=== PATIENT | female | born 1970 | race Caucasian/White ===

== ENCOUNTER 2016-10-21 11:07 | Emergency (ER) | payer MEDICARE, MEDICAID ==
[2016-10-21 11:12] VITALS: BMI 23.1
[2016-10-21] MEDS ORDERED: Sodium Chloride 0.9% 1,000 ML IV STA (11:58)
[2016-10-21] MEDS ORDERED: DiphenhydrAMINE 50 mg/ml Inj IVP STA (11:59)
[2016-10-21 12:11] LABS: URINE APPEARANCE CLEAR (CLEAR); URINE BILIRUBIN NEGATIVE (NEGATIVE); URINE BLOOD NEGATIVE (NEGATIVE); URINE COLOR YELLOW (YELLOW); URINE GLUCOSE (UA) NEGATIVE (NEGATIVE); URINE KETONE NEGATIVE (NEGATIVE); URINE LEUKOCYTE ESTERASE NEGATIVE Leu/uL (NEGATIVE); URINE PROTEIN NEGATIVE mg/dL (<30 mg/dL); URINE UROBILINOGEN 0.2 E.U./dL (<1 E.U./dL)
--- NOTE | 2016-10-21 12:11 | ED PDOC ---
Arrival/HPI - History of Present Illness Time/Duration: 24 hours Symptom Onset: Other Symptom Course: Unchanged Context: Home <Leatha Srivastava - Last Filed: 10/21/16 13:06> <Cassius Barrios - Last Filed: 10/21/16 19:52> - General Chief Complaint: Back Pain Time Seen by Provider: 10/21/16 11:13 - History of Present Illness Narrative History of Present Illness (Text): 10/21/16 11:59 46 yo female with PMH of kidney stone, sciatic, deafness, and HLD presented with lower back pain and headache. Groundskeeper Supervisor service used, number [id number]. Patient states that the back pain has been chronic for past year but was improving until yesterday. She states that the pain radiates down her right leg. She took Advil and meloxicam which helped with the pain. She also reports headache that stated this morning. She describes the headache as a tightness, she states she had similar headache in the past due to stress. She is currently visiting from [place] for this past month. Her PMD is in [place]. (Leatha Srivastava) Past Medical History - Provider Review Nursing Documentation Reviewed: Yes - Past History Past History: Non-Contributing - Infectious Disease Hx of Infectious Diseases: None - Cardiac Hx Cardiac Disorders: Yes - Pulmonary Hx Respiratory Disorders: No - Neurological Hx Neurological Disorder: No - HEENT Hx HEENT Disorder: Yes Hx Deafness: Yes Other/Comment: francis her son interpeter for sign okay with patinet. phone offered - Renal Hx Renal Disorder: No - Endocrine/Metabolic Hx Endocrine Disorders: No - Hematological/Oncological Hx Blood Transfusions: No Hx Blood Transfusion Reaction: No - Integumentary Hx Dermatological Disorder: No - Musculoskeletal/Rheumatological Hx Musculoskeletal Disorders: No - Gastrointestinal Hx Gastrointestinal Disorders: No - Genitourinary/Gynecological Other/Comment: h/o kidney stones - Psychiatric Hx Psychophysiologic Disorder: No Hx Depression: No Hx Emotional Abuse: No Hx Physical Abuse: No Hx Substance Use: No - Surgical History Hx Hysterectomy: Yes - Anesthesia Hx Anesthesia: Yes Hx Anesthesia Reactions: No Hx Malignant Hyperthermia: No - Suicidal Assessment Feels Threatened In Home Enviroment: No <Leatha Srivastava - Last Filed: 10/21/16 13:06> Family/Social History - Physician Review Nursing Documentation Reviewed: Yes Family/Social History: Hypertension, Neoplasm/Cancer Smoking Status: Never Smoked Hx Alcohol Use: No Hx Substance Use: No Hx Substance Use Treatment: No <Leatha Srivastava - Last Filed: 10/21/16 13:06> Allergies/Home Meds <Leatha Srivastava - Last Filed: 10/21/16 13:06> <Cassius Barrios - Last Filed: 10/21/16 19:52> Allergies/Adverse Reactions: Allergies No Known Allergies Allergy (Verified 04/20/15 22:46) Home Medications: Home Meds Medication Instructions Recorded Confirmed Lovastatin [Lovastatin] 40 mg PO DAILY 07/16/13 10/21/16 Biotin [Layo Biotin] 1 tab PO DAILY 10/21/16 10/21/16 Cyclobenzaprine [Flexeril] 1 tab PO TID PRN 10/21/16 10/21/16 Meloxicam [Mobic] 1 tab PO DAILY PRN 10/21/16 10/21/16 Review of Systems - Review of Systems Constitutional: Normal. absent: Fevers Eyes: Normal ENT: Normal. absent: Sore Throat, Sinus Congestion Respiratory: Normal. absent: SOB, Cough, Wheezing Cardiovascular: Normal. absent: Chest Pain, Palpitations Gastrointestinal: Nausea. absent: Abdominal Pain, Constipation, Diarrhea, Vomiting Genitourinary Female: Normal. absent: Dysuria, Frequency Musculoskeletal: Back Pain Skin: Normal. absent: Rash, Pruritis, Laceration Neurological: Headache. absent: Dizziness Endocrine: Normal. absent: Diaphoresis Hemo/Lymphatic: Normal. absent: Easy Bleeding, Easy Bruising Psychiatric: Normal <Leatha Srivastava - Last Filed: 10/21/16 13:06> Physical Exam - Systems Exam Head: Present: Atraumatic, Normocephalic Pupils: Present: PERRL. No: Non-Reactive, Pinpoint Extroacular Muscles: Present: EOMI. No: Entrapment Conjunctiva: Present: Normal Mouth: Present: Moist Mucous Membranes Pharnyx: Present: Normal. No: ERYTHEMA, EXUDATE Neck: Present: Normal Range of Motion Respiratory/Chest: Present: Clear to Auscultation, Good Air Exchange. No: Respiratory Distress, Accessory Muscle Use, Wheezes, Rales, Rhonchi, Tachypneic Cardiovascular: Present: Regular Rate and Rhythm, Normal S1, S2. No: Murmurs, Tachycardic, Bradycardic Abdomen: Present: Normal Bowel Sounds. No: Tenderness, Distention, Peritoneal Signs Back: Present: Normal Inspection. No: CVA Tenderness, Midline Tenderness, Paraspinal Tenderness, Pain with Leg Raise Upper Extremity: Present: Normal Inspection. No: Cyanosis, Edema Lower Extremity: Present: Normal Inspection, NORMAL PULSES. No: Edema, CALF TENDERNESS Neurological: Present: GCS=15, CN II-XII Intact, Speech Normal, Motor Func Grossly Intact Skin: Present: Warm, Dry, Normal Color. No: Rashes, Diaphoretic Psychiatric: Present: Alert, Oriented x 3, Normal Insight, Normal Concentration <Leatha Srivastava - Last Filed: 10/21/16 13:06> Medical Decision Making <Leatha Srivastava - Last Filed: 10/21/16 13:06> <Cassius Barrios - Last Filed: 10/21/16 19:52> ED Course and Treatment: 10/21/16 12:17 Impression: 46 yo female with PMH of kidney stone, sciatic, deafness, and HLD presented with lower back pain and headache. Differential diagnoses includes but not limited to: - Kidney stones Plan: - CBC, CMP - UA - lipase - reglan - Benadryl progress: 10/21/16 13:04 - Labs reviewed, within normal limits. Patient is to follow up with neurologist. She is instructed to return to ED if symptoms worsen. (Leatha Srivastava) Patient Seen With Resident: In agreement with resident note which contains more details about the patient. Patient was seen and evaluated with resident. Came up with plan and treatment together. A 46 year old female with lower back pain and headache. Additional HPI as noted by resident. On physical exam, patient has no acute findings. Ordered labs and Urinalysis. Will give patient Benadryl, Reglan and IV fluids. pt with low back pain radiating down right leg consistent with known sciatica, x 1 yr. also reports headache which started today. neuro itnact. no thunderclap features. reglan benadryl dosed. noted multiple visits for headache in past. s/p meds, pt smiling states feels well to go home. neuro intact. adviseoutpt follow up and return precautions 10/21/16 12:43 (Cassius Barrios) - Lab Interpretations Lab Results: 10/21/16 12:13 10/21/16 12:13 Lab Results 10/21/16 12:13: Sodium 142, Potassium 4.2, Chloride 107, Carbon Dioxide 25, Anion Gap 14, BUN 9, Creatinine 0.6, Est GFR ( Amer) > 60, Est GFR (Non- Af Amer) > 60, Random Glucose 89, Calcium 9.5, Total Bilirubin 0.9, AST 20, ALT 29, Alkaline Phosphatase 74, Total Protein 7.2, Albumin 4.0, Globulin 3.2, Albumin/Globulin Ratio 1.3, Lipase 147 10/21/16 12:13: PT 10.5, INR 0.97, APTT 26.2 10/21/16 12:13: WBC 5.9, RBC 4.42, Hgb 13.8, Hct 42.0, MCV 95.0, MCH 31.2, MCHC 32.9, RDW 12.5, Plt Count 235, MPV 11.2 H, Gran % 75.2 H, Lymph % (Auto) 16.8 L , [place] % (Auto) 7.4 H, Eos % (Auto) 0.3 L, Baso % (Auto) 0.3, Gran # 4.40, Lymph # 1.0 L, [place] # 0.4, Eos # 0.0, Baso # 0.02 10/21/16 12:05: Urine Color Yellow, Urine Appearance Clear, Urine pH 7.0, Ur Specific [place] 1.010, Urine Protein Negative, Urine Glucose (UA) Negative, Urine Ketones Negative, Urine Blood Negative, Urine Nitrate Negative, Urine Bilirubin Negative, Urine Urobilinogen 0.2, Ur Leukocyte Esterase Negative, Urine HCG, Qual Negative - Medication Orders Current Medication Orders: Discontinued Medications Diphenhydramine HCl (Benadryl) 25 mg IVP STAT STA Stop: 10/21/16 12:00 Last Admin: 10/21/16 12:14 Dose: 25 mg Sodium Chloride (Sodium Chloride 0.9%) 1,000 mls @ 1,000 mls/hr IV .Q1H STA Stop: 10/21/16 12:57 Last Admin: 10/21/16 12:11 Dose: 1,000 mls/hr Metoclopramide HCl (Reglan) 10 mg IVP STAT STA Stop: 10/21/16 11:59 Last Admin: 10/21/16 12:15 Dose: 10 mg <Leatha Srivastava - Last Filed: 10/21/16 13:06> - Scribe Statement The provider has reviewed the documentation as recorded by the Scribe <Cassius Barrios - Last Filed: 10/21/16 19:52> - Scribe Statement Po Munoz Provider Scribe Attestation: All medical record entries made by the Scribe were at my direction and personally dictated by me. I have reviewed the chart and agree that the record accurately reflects my personal performance of the history, physical exam, medical decision making, and the department course for this patient. I have also personally directed, reviewed, and agree with the discharge instructions and disposition. (Cassius Barrios) Disposition/Present on Arrival - Present on Arrival Any Indicators Present on Arrival: No History of DVT/PE: No History of Uncontrolled Diabetes: No Urinary Catheter: No History of Decub. Ulcer: No History Surgical Site Infection Following: None - Disposition Have Diagnosis and Disposition been Completed?: Yes Patient Plan: Discharge <Leatha Srivastava - Last Filed: 10/21/16 13:06> - Present on Arrival Any Indicators Present on Arrival: No - Disposition Have Diagnosis and Disposition been Completed?: Yes Disposition Time: 12:44 <Cassius Barrios - Last Filed: 10/21/16 19:52> - Disposition Diagnosis: Headache, Back pain Disposition: HOME/ ROUTINE Condition: GOOD Discharge Instructions (ExitCare): Acute Headache (ED), Acute Low Back Pain (ED ) Additional Instructions: please see specialist. return toe r with worsening symptoms or concerns. Prescriptions: Acetaminophen/Butalbital/Caf [Fioricet] 1 tab PO Q8 PRN #20 tab PRN Reason: Headache Referrals: Bucky Mujica, [Primary Care Provider] - Follow up with primary Gary Jones MD [Staff Provider] - Follow up with primary Demario Jones MD [Staff Provider] - Follow up with primary
[2016-10-21 12:14] LABS: ADD MANUAL DIFF? NO
[2016-10-21 12:23] LABS: BASO # 0.02 K/mm3 (0.0-2.0); BASO % 0.3 % (0.0-3.0); EOS % 0.3 % (1.5-5.0); GRAN % 75.2 % (50.0-68.0); LYMPH % 16.8 % (22.0-35.0); MEAN CORPUSCULAR HEMOGLOBIN 31.2 pg (25.0-35.0); MEAN CORPUSCULAR HGB CONC 32.9 g/dl (31.0-37.0); MEAN PLATELET VOLUME 11.2 fl (7.0-11.0); MONO # 0.4 (0.1-0.6); MONO % 7.4 % (1.0-6.0); PLATELET COUNT 235 10^3/uL (120.0-450.0); RED CELL DISTRIBUTION WIDTH 12.5 % (11.5-14.5); WHITE BLOOD COUNT 5.9 10^3/ul (4.5-11.0)
[2016-10-21 12:29] LABS: INR 0.97 (0.93-1.08); PARTIAL THROMBOPLASTIN TIME 26.2 Seconds (23.7-30.8)
[2016-10-21 12:37] LABS: ALB/GLOB RATIO 1.3 (1.1-1.8); ALKALINE PHOSPHATASE 74 U/L (38-133); ALT/SGPT 29 U/L (7-56); AST/SGOT 20 U/L (15-39); BILIRUBIN,TOTAL 0.9 mg/dL (0.2-1.3); BLOOD UREA NITROGEN 9 mg/dL (7-21); CALCIUM 9.5 mg/dL (8.4-10.5); CARBON DIOXIDE 25 mmol/L (21-33); CHLORIDE 107 mmol/L (98-107); GFR AFRICAN-AMERICAN > 60; GLUCOSE,RANDOM 89 mg/dL (70-110); LIPASE 147 U/L (23-300); POTASSIUM 4.2 mmol/L (3.6-5.0); SODIUM 142 mmol/L (132-148); TOTAL PROTEIN 7.2 g/dL (5.8-8.3)
[2016-10-21 12:53] VITALS: BP 128/68; PULSE 76; RESP 16; TEMP 97.6; O2SAT 96
== END 2016-10-21 12:57 | disposition home or self-care (01) ==
LOC: ED 11:07
DX: R51 Headache (principal); M54.5 Low back pain; E78.5 Hyperlipidemia, unspecified; H91.90 Unspecified hearing loss, unspecified ear
CPT/HCPCS: 80053; 81003; 83690; 84703; 85025; 85610; 85730; 96361; 96374; 96375; 99283; J1200; J2765; J7040

== ENCOUNTER 2017-02-03 12:01 | Emergency (ER) | payer MEDICARE, MEDICAID ==
--- NOTE | 2017-02-03 12:07 | ED PDOC ---
Arrival/HPI - General Time Seen by Provider: 02/03/17 12:06 Historian: Patient - History of Present Illness Narrative History of Present Illness (Text): 02/03/17 12:06 46 y/o female, pmh including hyperlipidemia/cholecystitis, nkda, c/o burning urinary sensation x 2 days. Pt. has no fever or chills, no abdominal or pelvic pain, no numbness or tingling, no night sweat, no rash, no other medical or psychological complaints. Past Medical History - Provider Review Nursing Documentation Reviewed: Yes - Past History Past History: Non-Contributing - Infectious Disease Hx of Infectious Diseases: None - Cardiac Hx Cardiac Disorders: Yes - Pulmonary Hx Respiratory Disorders: No - Neurological Hx Neurological Disorder: No - HEENT Hx HEENT Disorder: Yes Hx Deafness: Yes Other/Comment: francis her son interpeter for sign okay with patinet. phone offered - Renal Hx Renal Disorder: No - Endocrine/Metabolic Hx Endocrine Disorders: No - Hematological/Oncological Hx Blood Transfusions: No Hx Blood Transfusion Reaction: No - Integumentary Hx Dermatological Disorder: No - Musculoskeletal/Rheumatological Hx Musculoskeletal Disorders: No - Gastrointestinal Hx Gastrointestinal Disorders: No - Genitourinary/Gynecological Other/Comment: h/o kidney stones - Psychiatric Hx Psychophysiologic Disorder: No Hx Depression: No Hx Emotional Abuse: No Hx Physical Abuse: No Hx Substance Use: No - Surgical History Hx Hysterectomy: Yes - Anesthesia Hx Anesthesia: Yes Hx Anesthesia Reactions: No Hx Malignant Hyperthermia: No - Suicidal Assessment Feels Threatened In Home Enviroment: No Family/Social History - Physician Review Nursing Documentation Reviewed: Yes Family/Social History: Unknown Family HX Smoking Status: Never Smoked Hx Alcohol Use: No Hx Substance Use: No Hx Substance Use Treatment: No Allergies/Home Meds Allergies/Adverse Reactions: Allergies No Known Allergies Allergy (Verified 02/03/17 13:16) Home Medications: Home Meds Medication Instructions Recorded Confirmed Lovastatin [Lovastatin] 40 mg PO DAILY 07/16/13 02/03/17 Review of Systems - Review of Systems Constitutional: absent: Fatigue, Fevers Eyes: absent: Vision Changes ENT: absent: Hearing Changes Respiratory: absent: SOB, Cough, Sputum Cardiovascular: absent: Chest Pain, Palpitations Gastrointestinal: absent: Abdominal Pain, Nausea, Vomiting Genitourinary Female: Dysuria. absent: Frequency, Hematuria, Urine Output Changes, Vaginal Bleeding, Vaginal Discharge Skin: absent: Rash, Pruritis, Skin Lesions Neurological: absent: Headache, Dizziness Physical Exam Vital Signs Temp Pulse Resp BP Pulse Ox 02/03/17 12:41 98.7 F 78 18 125/85 95 - Systems Exam Head: Present: Atraumatic, Normocephalic Pupils: Present: PERRL Extroacular Muscles: Present: EOMI Conjunctiva: Present: Normal Mouth: Present: Moist Mucous Membranes Neck: Present: Normal Range of Motion Respiratory/Chest: Present: Clear to Auscultation, Good Air Exchange. No: Respiratory Distress, Accessory Muscle Use Cardiovascular: Present: Regular Rate and Rhythm, Normal S1, S2. No: Murmurs Abdomen: Present: Normal Bowel Sounds. No: Tenderness, Distention, Peritoneal Signs, Rebound, Guarding Back: Present: Normal Inspection. No: CVA Tenderness Upper Extremity: Present: Normal Inspection. No: Cyanosis, Edema Lower Extremity: Present: Normal Inspection. No: Edema Neurological: Present: GCS=15, Speech Normal, Motor Func Grossly Intact, Gait Normal, Memory Normal Skin: Present: Warm, Dry, Normal Color. No: Rashes Psychiatric: Present: Alert, Oriented x 3, Normal Insight, Normal Concentration Medical Decision Making ED Course and Treatment: 02/03/17 12:44 -ua/uc -observe and reasses 02/03/17 14:20 -Urine hcg negative, -UA show +UTI, macrobid ordered. -Discharge home with macrobid, pyridium, stay hydrated, follow up with your own pmd and urologist within 2 days, return to the ER for any new or worsening signs or symptoms. - Lab Interpretations Lab Results: Lab Results 02/03/17 13:30: Urine Color Yellow, Urine Appearance Sl cloudy, Urine pH 6.0, Ur Specific [place] 1.020, Urine Protein 30 H, Urine Glucose (UA) Negative, Urine Ketones Negative, Urine Blood Moderate H, Urine Nitrate Negative, Urine Bilirubin Negative, Urine Urobilinogen 0.2, Ur Leukocyte Esterase Moderate H, Urine RBC 5 - 10, Urine WBC Tntc, Ur Epithelial Cells 0 - 2, Urine Bacteria Few - PA / MATCHER OPERATOR / Resident Statement MD/DO has reviewed & agrees with the documentation as recorded. Disposition/Present on Arrival - Present on Arrival Any Indicators Present on Arrival: No History of DVT/PE: No History of Uncontrolled Diabetes: No Urinary Catheter: No History of Decub. Ulcer: No History Surgical Site Infection Following: None - Disposition Have Diagnosis and Disposition been Completed?: Yes Diagnosis: UTI (urinary tract infection) Disposition: HOME/ ROUTINE Disposition Time: 14:21 Patient Plan: Discharge Condition: IMPROVED Additional Instructions: -Discharge home with macrobid, pyridium, stay hydrated, follow up with your own pmd and urologist within 2 days, return to the ER for any new or worsening signs or symptoms. Prescriptions: Nitrofurantoin Macrocrystals [Macrobid] 100 mg PO BID #14 cap Phenazopyridine HCl [Pyridium] 200 mg PO TID #6 tablet Referrals: Khris Foreman MD [Primary Care Provider] - Follow up with primary Herman Coon MD [Staff Provider] - Follow up with primary Forms: WORK NOTE
[2017-02-03 12:42] VITALS: BMI 22.8
[2017-02-03 13:38] LABS: URINE BILIRUBIN NEGATIVE (NEGATIVE); URINE BLOOD MODERATE (NEGATIVE); URINE GLUCOSE (UA) NEGATIVE (NEGATIVE); URINE KETONE NEGATIVE (NEGATIVE); URINE LEUKOCYTE ESTERASE MODERATE Leu/uL (NEGATIVE); URINE PROTEIN 30 mg/dL (<30 mg/dL); URINE UROBILINOGEN 0.2 E.U./dL (<1 E.U./dL)
[2017-02-03 13:39] LABS: URINE APPEARANCE SL CLOUDY (CLEAR); URINE COLOR YELLOW (YELLOW)
[2017-02-03 13:43] LABS: URINE WBC TNTC /hpf (0-6)
[2017-02-03 13:44] LABS: URINE BACTERIA FEW (NEG); URINE EPITHELIAL CELLS 0 - 2 /hpf (0-5)
[2017-02-03 14:43] VITALS: BP 135/79; PULSE 77; RESP 16; TEMP 97.9; O2SAT 98
== END 2017-02-03 14:54 | disposition home or self-care (01) ==
LOC: ED 12:01
DX: N39.0 Urinary tract infection, site not specified (principal)

== ENCOUNTER 2017-07-06 21:33 | Emergency (ER) | payer MEDICARE, MEDICAID ==
[2017-07-06 21:33] VITALS: BMI 22.8
[2017-07-06 21:58] VITALS: RESP 18; TEMP 98.2
--- NOTE | 2017-07-06 22:41 | ED PDOC ---
Arrival/HPI - General Chief Complaint: Chest Pain Time Seen by Provider: 07/06/17 21:50 Historian: Patient - History of Present Illness Narrative History of Present Illness (Text): 07/06/17 22:39 Yamel Thomas is a 46 year old female, with no significant past medical history , who presents to the emergency department complaining of chest pain in the epigastria area. Patient describes pain as a "burning" sensation. Patient also notes depression with suicidal ideation. Patient denies any fever, chills, shortness of breath, nausea, vomiting, diarrhea, back pain, neck pain, headache , dizziness or any other complaints. Time/Duration: Other (today) Symptom Onset: Gradual Symptom Course: Unchanged Activities at Onset: Light Context: Home Past Medical History - Provider Review Nursing Documentation Reviewed: Yes - Past History Past History: Non-Contributing - Infectious Disease Hx of Infectious Diseases: None - Cardiac Hx Cardiac Disorders: Yes - Pulmonary Hx Respiratory Disorders: No - Neurological Hx Neurological Disorder: No - HEENT Hx HEENT Disorder: Yes Hx Deafness: Yes Other/Comment: francis her son interpeter for sign okay with patinet. phone offered - Renal Hx Renal Disorder: No - Endocrine/Metabolic Hx Endocrine Disorders: No - Hematological/Oncological Hx Blood Transfusions: No Hx Blood Transfusion Reaction: No - Integumentary Hx Dermatological Disorder: No - Musculoskeletal/Rheumatological Hx Musculoskeletal Disorders: No - Gastrointestinal Hx Gastrointestinal Disorders: No - Genitourinary/Gynecological Other/Comment: h/o kidney stones - Psychiatric Hx Psychophysiologic Disorder: No Hx Depression: No Hx Emotional Abuse: No Hx Physical Abuse: No Hx Substance Use: No - Surgical History Hx Hysterectomy: Yes - Anesthesia Hx Anesthesia: Yes Hx Anesthesia Reactions: No Hx Malignant Hyperthermia: No - Suicidal Assessment Feels Threatened In Home Enviroment: No Family/Social History - Physician Review Nursing Documentation Reviewed: Yes Family/Social History: Unknown Family HX Smoking Status: Never Smoked Hx Alcohol Use: No Hx Substance Use: No Hx Substance Use Treatment: No Allergies/Home Meds Allergies/Adverse Reactions: Allergies No Known Allergies Allergy (Verified 02/03/17 13:16) Home Medications: Home Meds Medication Instructions Recorded Confirmed Lovastatin [Lovastatin] 40 mg PO DAILY 07/16/13 07/06/17 Review of Systems - Physician Review All systems were reviewed & negative as marked: Yes - Review of Systems Constitutional: Normal Eyes: Normal ENT: Normal Respiratory: Normal. absent: SOB, Cough Cardiovascular: Chest Pain (burning in the epigastric area). absent: Palpitations Gastrointestinal: Normal. absent: Abdominal Pain, Diarrhea, Nausea, Vomiting Genitourinary Female: Normal. absent: Dysuria, Frequency, Hematuria, Urine Output Changes Musculoskeletal: Normal. absent: Back Pain, Neck Pain Skin: Normal. absent: Rash Neurological: Normal. absent: Headache, Dizziness Endocrine: Normal Hemo/Lymphatic: Normal Psychiatric: Normal, Depression, Suicidal Ideation Physical Exam Vital Signs Reviewed: Yes Vital Signs Temp Pulse Resp BP Pulse Ox 07/06/17 21:57 98.2 F 79 18 139/99 H 98 Temperature: Afebrile Blood Pressure: Normal Pulse: Regular Respiratory Rate: Normal Appearance: Positive for: Well-Appearing, Non-Toxic, Comfortable Pain Distress: None Mental Status: Positive for: Alert and Oriented X 3 - Systems Exam Head: Present: Atraumatic, Normocephalic Pupils: Present: PERRL Extroacular Muscles: Present: EOMI Conjunctiva: Present: Normal Mouth: Present: Moist Mucous Membranes Neck: Present: Normal Range of Motion Respiratory/Chest: Present: Clear to Auscultation, Good Air Exchange. No: Respiratory Distress, Accessory Muscle Use Cardiovascular: Present: Regular Rate and Rhythm, Normal S1, S2. No: Murmurs Abdomen: Present: Normal Bowel Sounds. No: Tenderness, Distention, Peritoneal Signs Back: Present: Normal Inspection Upper Extremity: Present: Normal Inspection. No: Cyanosis, Edema Lower Extremity: Present: Normal Inspection. No: Edema Neurological: Present: GCS=15, CN II-XII Intact, Speech Normal Skin: Present: Warm, Dry, Normal Color, Other (fungal rash under breasts). No: Rashes Psychiatric: Present: Alert, Oriented x 3, Normal Insight, Normal Concentration Medical Decision Making ED Course and Treatment: 07/06/17 22:43 Impression: 46 year old female who presents to the emergency department complaining of chest pain and depression with suicidal ideation. Plan: -- EKG -- Labs -- Acetaminophen -- Salicylate -- Urinalysis -- Reassess and disposition Progress Notes: pt evaluated by pes cleared for dc .pt improved 07/07/17 04:57 - Lab Interpretations Lab Results: 07/06/17 22:16 07/06/17 22:16 Lab Results 07/06/17 22:16: Troponin I < 0.01 07/06/17 22:16: Alcohol, Quantitative < 10 07/06/17 22:16: Salicylates < 1 L, Acetaminophen < 10.0 L 07/06/17 22:16: Sodium 144, Potassium 4.1, Chloride 107, Carbon Dioxide 26, Anion Gap 15, BUN 13, Creatinine 0.7, Est GFR ( Amer) > 60, Est GFR (Non- Af Amer) > 60, Random Glucose 88, Calcium 10.3, Total Bilirubin 0.8, AST 39 H, ALT 44, Alkaline Phosphatase 78, Total Creatine Kinase 195, Total Protein 7.9, Albumin 4.3, Globulin 3.6, Albumin/Globulin Ratio 1.2 07/06/17 22:16: WBC 6.7, RBC 4.54, Hgb 14.5, Hct 43.9, MCV 96.7, MCH 31.9, MCHC 33.0, RDW 12.8, Plt Count 288, MPV 11.8 H, Gran % 73.3 H, Lymph % (Auto) 19.6 L , [place] % (Auto) 6.7 H, Eos % (Auto) 0.3 L, Baso % (Auto) 0.1, Gran # 4.93, Lymph # (Auto) 1.3, [place] # (Auto) 0.5, Eos # (Auto) 0.0, Baso # (Auto) 0.01 - Medication Orders Current Medication Orders: Discontinued Medications Clotrimazole (Lotrimin 1%) 0 gm TOP STAT STA Stop: 07/07/17 00:44 - Scribe Statement The provider has reviewed the documentation as recorded by the Scribe Documented by Jessa Elaine acting as a scribe for Khris Quinones MD. Disposition/Present on Arrival - Present on Arrival Any Indicators Present on Arrival: No History of DVT/PE: No History of Uncontrolled Diabetes: No Urinary Catheter: No History of Decub. Ulcer: No History Surgical Site Infection Following: None - Disposition Have Diagnosis and Disposition been Completed?: Yes Diagnosis: Chest pain, Fungal infection Disposition: HOME/ ROUTINE Disposition Time: 04:00 Condition: STABLE Discharge Instructions (ExitCare): Chest Pain, Yeast Infection (DC), Chest Pain (ED) Prescriptions: Clotrimazole 1% Cream [Lotrimin 1%] 30 gm EXT BID #30 tube Referrals: [facility] Profile Req, [Primary Care Provider] - Follow up with primary Forms: [employer] (Malay)
[2017-07-07] MEDS ORDERED: Clotrimazole 1% Cream(30 gm) TOP STA (00:43)
[2017-07-07 01:33] LABS: BASO # 0.01 K/mm3 (0.0-2.0); BASO % 0.1 % (0.0-3.0); EOS % 0.3 % (1.5-5.0); GRAN # 4.93 (1.4-6.5); GRAN % 73.3 % (50.0-68.0); HEMOGLOBIN 14.5 g/dL (12.0-16.0); LYMPH # 1.3 (1.2-3.4); LYMPH % 19.6 % (22.0-35.0); MEAN CELL VOLUME 96.7 fl (80.0-105.0); MEAN CORPUSCULAR HEMOGLOBIN 31.9 pg (25.0-35.0); MEAN PLATELET VOLUME 11.8 fl (7.0-11.0); MONO # 0.5 (0.1-0.6); MONO % 6.7 % (1.0-6.0); RBC 4.54 10^6/uL (3.5-6.1); RED CELL DISTRIBUTION WIDTH 12.8 % (11.5-14.5); WHITE BLOOD COUNT 6.7 10^3/ul (4.5-11.0)
[2017-07-07 01:40] LABS: ACETAMINOPHEN < 10.0 ug/ml (10.0-20.0); SALICYLATE < 1 mg/dL (2.0-20.0)
[2017-07-07 01:41] LABS: ALB/GLOB RATIO 1.2 (1.1-1.8); ALBUMIN 4.3 g/dL (3.0-4.8); ALT/SGPT 44 U/L (7-56); AST/SGOT 39 U/L (14-36); BLOOD UREA NITROGEN 13 mg/dL (7-21); CALCIUM 10.3 mg/dL (8.4-10.5); GFR AFRICAN-AMERICAN > 60; GFR NON-AFRICAN AMERICAN > 60
[2017-07-07 06:18] VITALS: BP 128/77; PULSE 80; O2SAT 99
--- NOTE | 2017-07-07 16:17 | CARD ---
APPROVED REPORT EKG Measurement Heart [id number] <Conclusion> Sinus rhythm with short [place] Moderate voltage criteria for LVH, may be normal variant
== END 2017-07-07 04:10 | disposition home or self-care (01) ==
LOC: ED 21:33
DX: R07.9 Chest pain, unspecified (principal); B49 Unspecified mycosis
CPT/HCPCS: 80053; 82550; 84484; 85025; 90791; 93005; 99285; G0480

== ENCOUNTER 2017-12-20 21:34 | Observation (INO) | payer MEDICARE, MEDICAID ==
[2017-12-20 21:34] VITALS: BMI 22.8
[2017-12-20] MEDS ORDERED: Glucagon Recombinant 1 mg Inj IV STA (22:06)
--- NOTE | 2017-12-20 22:27 | ED PDOC ---
Arrival/HPI - General Chief Complaint: Foreign Body Time Seen by Provider: 12/20/17 21:55 Historian: Patient, Family (Son translated ) - History of Present Illness Narrative History of Present Illness (Text): 12/20/17 22:24 47 year old female, with no significant past medical history, presents to the emergency department complaining of possible food bolus stuck in throat / upper esophageal area. 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 Patient apparently had been choking at the time. She currently states that she "feels something is stuck to the area". Patient denies any fever, chills, chest pain, shortness of breath, nausea, vomiting, diarrhea, urinary symptoms, back pain, neck pain, headache, dizziness, or any other complaints. Time/Duration: Prior to Arrival (less than an hour) Symptom Onset: Sudden Symptom Course: Unchanged Activities at Onset: Eating Past Medical History - Provider Review Nursing Documentation Reviewed: Yes - Past History Past History: Non-Contributing - Infectious Disease Hx of Infectious Diseases: None - Cardiac Hx Cardiac Disorders: Yes - Pulmonary Hx Respiratory Disorders: No - Neurological Hx Neurological Disorder: No - HEENT Hx HEENT Disorder: Yes Hx Deafness: Yes Other/Comment: francis her son interpeter for sign okay with patinet. phone offered - Renal Hx Renal Disorder: No - Endocrine/Metabolic Hx Endocrine Disorders: No - Hematological/Oncological Hx Blood Transfusions: No Hx Blood Transfusion Reaction: No - Integumentary Hx Dermatological Disorder: No - Musculoskeletal/Rheumatological Hx Musculoskeletal Disorders: No - Gastrointestinal Hx Gastrointestinal Disorders: No - Genitourinary/Gynecological Other/Comment: h/o kidney stones - Psychiatric Hx Psychophysiologic Disorder: No Hx Depression: No Hx Emotional Abuse: No Hx Physical Abuse: No Hx Substance Use: No - Surgical History Hx Hysterectomy: Yes - Anesthesia Hx Anesthesia: Yes Hx Anesthesia Reactions: No Hx Malignant Hyperthermia: No - Suicidal Assessment Feels Threatened In Home Enviroment: No Family/Social History - Physician Review Nursing Documentation Reviewed: Yes Family/Social History: No Known Family HX Smoking Status: Never Smoked Hx Alcohol Use: No Hx Substance Use: No Hx Substance Use Treatment: No Allergies/Home Meds Allergies/Adverse Reactions: Allergies No Known Allergies Allergy (Verified 02/03/17 13:16) Home Medications: Home Meds Medication Instructions Recorded Confirmed Cyclobenzaprine [Cyclobenzaprine 10 mg PO TID PRN 12/21/17 12/21/17 HCl] Review of Systems - Physician Review All systems were reviewed & negative as marked: Yes - Review of Systems Constitutional: absent: Fevers, Other (Chills) ENT: Other (feels something stuck in throat ) Respiratory: absent: SOB Cardiovascular: Chest Pain Gastrointestinal: absent: Diarrhea, Nausea, Vomiting Genitourinary Female: absent: Dysuria, Frequency, Hematuria Musculoskeletal: absent: Back Pain, Neck Pain Neurological: absent: Headache, Dizziness Physical Exam Vital Signs Reviewed: Yes Vital Signs Temp Pulse Resp BP Pulse Ox 12/21/17 02:19 88 15 145/70 98 12/20/17 23:19 99.0 F 12/20/17 23:14 93 H 20 143/79 100 Temperature: Afebrile Blood Pressure: Normal Pulse: Regular Respiratory Rate: Normal Appearance: Positive for: Well-Appearing, Non-Toxic, Comfortable Pain Distress: None Mental Status: Positive for: Alert and Oriented X 3 (Patient mute and deaf) - Systems Exam Head: Present: Atraumatic, Normocephalic Pupils: Present: PERRL Extroacular Muscles: Present: EOMI Conjunctiva: Present: Normal Mouth: Present: Moist Mucous Membranes Neck: Present: Normal Range of Motion Respiratory/Chest: Present: Clear to Auscultation, Good Air Exchange. No: Respiratory Distress, Accessory Muscle Use Cardiovascular: Present: Regular Rate and Rhythm, Normal S1, S2. No: Murmurs Abdomen: No: Tenderness, Distention, Peritoneal Signs Back: Present: Normal Inspection Upper Extremity: Present: Normal Inspection. No: Cyanosis, Edema Lower Extremity: Present: Normal Inspection. No: Edema Neurological: Present: GCS=15, CN II-XII Intact Skin: Present: Warm, Dry, Normal Color. No: Rashes Psychiatric: Present: Alert, Oriented x 3, Normal Insight, Normal Concentration Medical Decision Making ED Course and Treatment: 12/20/17 22:02 Impression: 47 year old female presents complaining of possible food bolus stuck in throat/ upper esophageal area s/p choking on food. Plan: -- CT Chest w/o Contrast -- CT neck Soft tissue w/ contrast -- EKG -- Labs -- Chest X-ray -- Glucagen diagnostic Kit -- Reassess and disposition Progress Notes: 12/20/17 22:[address] Goodman fellow for Dr. Velasquez who is aware and agrees with the plan. He requests Chest CT. 12/20/17 22:57 EKG shows NSR at 93 BPM with non-specific ST changes. Interpreted by me. 12/20/17 23:36 CXR Impression: As read by me, no acute process. EXAM: CT Neck Without Intravenous Contrast Dictated and Authenticated by: Khris Salmeron MD 12/20/2017 11:34 PM IMPRESSION: No radiopaque foreign body in the airway or upper esophagus. EXAM: CT Chest Without Intravenous Contrast Dictated and Authenticated by: Khris Salmeron MD 12/20/2017 11:35 PM IMPRESSION: No radiopaque foreign body in the airway or esophagus. 12/21/17 00:[address] Goodman fellow for Dr. Velasquez who request patient to be admitted to hospitalist service for Barium Swallow done in the morning/ possible endoscopy to follow. 12/21/17 00:12 Case discussed with medical records coder and Dr. Lamar who is aware and agrees with the plan. Accepts patient into hospitalist service. - Lab Interpretations Lab Results: 12/20/17 23:12 12/20/17 23:12 Lab Results 12/20/17 23:12: WBC 11.0 D, RBC 4.27, Hgb 13.5, Hct 39.6, MCV 92.7 D, MCH 31.6 , MCHC 34.1, RDW 12.4, Plt Count 239, MPV 11.4 H 12/20/17 23:12: Sodium 139, Potassium 4.1, Chloride 102, Carbon Dioxide 23, Anion Gap 18, BUN 12, Creatinine 0.7, Est GFR ( Amer) > 60, Est GFR (Non- Af Amer) > 60, Random Glucose 152 H, Calcium 9.6, Total Bilirubin 0.6, AST 26, ALT 27, Alkaline Phosphatase 69, Total Protein 7.4, Albumin 4.3, Globulin 3.1, Albumin/Globulin Ratio 1.4 I have reviewed the lab results: Yes - RAD Interpretation Radiology Orders: 12/20/17 22:02 CHEST PORTABLE [RAD] Stat 12/20/17 22:20 CHEST W/O CONTRAST [CT] Stat 12/20/17 22:26 NECK SOFT TISSUE W/O CONTRAST [CT] Stat - EKG Interpretation Interpreted by ED Physician: Yes Type: 12 lead EKG - Medication Orders Current Medication Orders: Acetaminophen (Tylenol 120mg Supp) 120 mg RC Q6 PRN PRN Reason: Fever >100.4 F Epinephrine HCl (Epinephrine) 1 mg SC Q15MIN PRN PRN Reason: Swelling Famotidine (Pepcid) 20 mg IVP DAILY ROMY Sodium Chloride (Sodium Chloride 0.9%) 1,000 mls @ 100 mls/hr IV .Q10H ROMY Last Admin: 12/21/17 00:59 Dose: 100 mls/hr eMAR Start Stop Document 12/21/17 00:59 CNR (Rec: 12/21/17 00:59 CNR [id number]) Intravenous Solution Start Date 12/21/17 Start Time 00:59 Morphine Sulfate (Morphine) 2 mg IVP Q4H PRN PRN Reason: Pain, severe (8-10) Ondansetron HCl (Zofran Inj) 4 mg IVP Q4H PRN PRN Reason: Nausea/Vomiting Discontinued Medications Glucagon (Glucagen Diagnostic Kit) 1 mg IV STAT STA Stop: 12/20/17 22:07 Last Admin: 12/20/17 23:21 Dose: 1 mg eMAR Start Stop Document 12/20/17 23:21 HI (Rec: 12/20/17 23:22 HI [id number]) Intravenous Solution Start Date 12/20/17 Start Time 23:22 Morphine Sulfate (Morphine) 1 mg IVP Q4H PRN PRN Reason: Pain, severe (8-10) - Scribe Statement The provider has reviewed the documentation as recorded by the Ino Méndez Provider Scribe Attestation: All medical record entries made by the Ino were at my direction and personally dictated by me. I have reviewed the chart and agree that the record accurately reflects my personal performance of the history, physical exam, medical decision making, and the department course for this patient. I have also personally directed, reviewed, and agree with the discharge instructions and disposition. Disposition/Present on Arrival - Present on Arrival Any Indicators Present on Arrival: No History of DVT/PE: No History of Uncontrolled Diabetes: No Urinary Catheter: No History of Decub. Ulcer: No History Surgical Site Infection Following: None - Disposition Have Diagnosis and Disposition been Completed?: Yes Diagnosis: Foreign body in esophagus Disposition: HOSPITALIZED Disposition Time: 00:39 Patient Plan: Observation Patient Problems: Current Active Problems Problem Status Onset Foreign body in esophagus Acute Condition: STABLE
[2017-12-20 23:32] LABS: ALB/GLOB RATIO 1.4 (1.1-1.8); ALBUMIN 4.3 g/dL (3.0-4.8); ALT/SGPT 27 U/L (7-56); AST/SGOT 26 U/L (14-36); BLOOD UREA NITROGEN 12 mg/dL (7-21); CALCIUM 9.6 mg/dL (8.4-10.5); GFR NON-AFRICAN AMERICAN > 60
[2017-12-20 23:40] LABS: HEMOGLOBIN 13.5 g/dL (12.0-16.0); MEAN CELL VOLUME 92.7 fl (80.0-105.0); MEAN CORPUSCULAR HEMOGLOBIN 31.6 pg (25.0-35.0); MEAN CORPUSCULAR HGB CONC 34.1 g/dl (31.0-37.0); MEAN PLATELET VOLUME 11.4 fl (7.0-11.0); RBC 4.27 10^6/uL (3.5-6.1); RED CELL DISTRIBUTION WIDTH 12.4 % (11.5-14.5)
--- NOTE | 2017-12-21 00:19 | CP.PCM.CON ---
<VinnyphyllisannaMedhat - Last Filed: 12/21/17 00:13> History of Present Illness - History of Present Illness History of Present Illness: GI Fellow PGY4, Consult note. Yamel Thomas is a 47F with minimal pmhx besides deafness, gallstone s/p ju presenting with acute dysphagia and odynophagia. Patient has son at bedside to help guide conversation. Patient states she was eating pasta with chicken when she suddenly had difficulty swallowing. She tried several time to induce vomiting without relief. She was initially unable to maintain secretions but after glucagon she is able to swallow some water at the time of my exam. She is not actively spitting up at this time. She has no history of problems swallowing. PMHx - see above PSHx - cholecystectomy, ERCP with stone removal FMHx - non contributory SocHx - Denies smoking or alcohol use. 12pt ROS completed and negative except for above. Past Patient History - Infectious Disease Hx of Infectious Diseases: None - Past Social History Smoking Status: Never Smoked - CARDIAC Hx Cardiac Disorders: Yes - PULMONARY Hx Respiratory Disorders: No - NEUROLOGICAL Hx Neurological Disorder: No - HEENT Hx HEENT Problems: Yes Hx Deafness: Yes Other/Comment: francis her son interpeter for sign okay with patinet. phone offered - RENAL Hx Chronic Kidney Disease: No - ENDOCRINE/METABOLIC Hx Endocrine Disorders: No - HEMATOLOGICAL/ONCOLOGICAL Hx Blood Transfusions: No Hx Blood Transfusion Reaction: No - INTEGUMENTARY Hx Dermatological Problems: No - MUSCULOSKELETAL/RHEUMATOLOGICAL Hx Musculoskeletal Disorders: No - GASTROINTESTINAL Hx Gastrointestinal Disorders: No - GENITOURINARY/GYNECOLOGICAL Other/Comment: h/o kidney stones - PSYCHIATRIC Hx Psychophysiologic Disorder: No Hx Depression: No Hx Emotional Abuse: No Hx Physical Abuse: No Hx Substance Use: No - SURGICAL HISTORY Hx Hysterectomy: Yes - ANESTHESIA Hx Anesthesia: Yes Hx Anesthesia Reactions: No Hx Malignant Hyperthermia: No Meds Allergies/Adverse Reactions: Allergies Allergy/AdvReac Type Severity Reaction Status Date / Time No Known Allergies Allergy Verified 02/03/17 13:16 Physical Exam - Constitutional Appears: Non-toxic, No Acute Distress - Head Exam Head Exam: ATRAUMATIC, NORMAL INSPECTION - Eye Exam Eye Exam: EOMI, Normal appearance - ENT Exam ENT Exam: Mucous Membranes Moist, Normal Exam - Neck Exam Neck exam: Positive for: Normal Inspection. Negative for: Tenderness - Respiratory Exam Respiratory Exam: Clear to Auscultation Bilateral, NORMAL BREATHING PATTERN. absent: Wheezes - Cardiovascular Exam Cardiovascular Exam: REGULAR RHYTHM, +S1, +S2 - GI/Abdominal Exam GI & Abdominal Exam: Soft. absent: Distended, Guarding, Tenderness - Rectal Exam Rectal Exam: Deferred - Extremities Exam Extremities exam: Positive for: normal inspection - Neurological Exam Neurological exam: Alert, CN II-XII Intact, Oriented x3 - Psychiatric Exam Psychiatric exam: Anxious, Normal Affect - Skin Skin Exam: Dry, Normal Color Results - Vital Signs Recent Vital Signs: Last Vital Signs Temp 99.0 F 12/20/17 23:19 Pulse 93 H 12/20/17 23:14 Resp 20 12/20/17 23:14 BP 143/79 12/20/17 23:14 Pulse Ox 100 12/20/17 23:14 - Labs Result Diagrams: 12/20/17 23:12 12/20/17 23:12 Labs: Laboratory Results - last 24 hr 12/20/17 12/20/17 23:12 23:12 WBC 11.0 D RBC 4.27 Hgb 13.5 Hct 39.6 MCV 92.7 D MCH 31.6 MCHC 34.1 RDW 12.4 Plt Count 239 MPV 11.4 H Sodium 139 Potassium 4.1 Chloride 102 Carbon Dioxide 23 Anion Gap 18 BUN 12 Creatinine 0.7 Est GFR ( Amer) > 60 Est GFR (Non-Af Amer) > 60 Random Glucose 152 H Calcium 9.6 Total Bilirubin 0.6 AST 26 ALT 27 Alkaline Phosphatase 69 Total Protein 7.4 Albumin 4.3 Globulin 3.1 Albumin/Globulin Ratio 1.4 Assessment & Plan - Assessment and Plan (Free Text) Assessment: 47yo presenting with trouble swallowing #Dysphagia #Odynophagia #Deafness PLAN: -This is an acute episode without history of similar problems. Possible food bolus impaction spontaneous transferred to stomach after glucagon. -CT of neck and chest reviewed and no obvious impaction in the esophagus. -Patient currently able to swallow water -Recommend barium esophagram in AM -Continue to monitor overnight -Water is okay as tolerated -Plans for endoscopy pending clinical course -Plan discussed with Dr. Velasquez <Kd Velasquez - Last Filed: 12/21/17 09:18> Meds - Medications Medications: Current Medications Acetaminophen (Tylenol 120mg Supp) 120 mg RC Q6 PRN PRN Reason: Fever >100.4 F Epinephrine HCl (Epinephrine) 1 mg SC Q15MIN PRN PRN Reason: Swelling Sodium Chloride (Sodium Chloride 0.9%) 1,000 mls @ 100 mls/hr IV .Q10H [facility] Last Admin: 12/21/17 00:59 Dose: 100 mls/hr Ondansetron HCl (Zofran Inj) 4 mg IVP Q4H PRN PRN Reason: Nausea/Vomiting Pantoprazole Sodium (Protonix Ec Tab) 40 mg PO 0600 ROMY Sucralfate (Carafate Oral Susp) 1 gm PO 0630,1130,1630,2200 ROMY Results - Vital Signs Recent Vital Signs: Last Vital Signs Temp 98.1 F 12/21/17 06:00 Pulse 78 12/21/17 06:00 Resp 16 12/21/17 06:00 BP 110/82 12/21/17 06:00 Pulse Ox 96 12/21/17 06:00 - Labs Result Diagrams: 12/20/17 23:12 12/20/17 23:12 Attending/Attestation - Attestation I have personally seen and examined this patient.: Yes I have fully participated in the care of the patient.: Yes I have reviewed all pertinent clinical information: Yes Notes (Text): 12/21/17 09:16 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 Patient swallowing secretions and liquids but has pain. Barium esophagogram pending. PPi liquid po and NPO. Rest of plan to follow after above imaging Discussed with the ER attending overnight and the GI fellow who assessed the patient in the ER
[2017-12-21] MEDS ORDERED: Morphine 2 mg/ml ISec IVP PRN ×2 (00:51→01:40)
--- NOTE | 2017-12-21 00:57 | CP.PCM.HP ---
<Shannon Ayoub - Last Filed: 12/21/17 01:30> History of Present Illness - History of Present Illness History of Present Illness: PGY-3 H&P note CC: Choking on the chicken. Patient is a 47 y/o with pmhx of hld, neuropathy, deafness, gallstone s/p ju presenting with acute dysphagia and odynophagia. Patient's son help translate via sign language. Patient was eating pasta and chicken last night, felt like the chicken stuck in her throat and have not been able to clear her throat or swallow the food. Tried to induce vomiting with no success. Admits to drooling initially, however currently patient is able to drink water after receiving glucagon in the ED. No drooling at this time, however still feels like there's something in her throat. Denies respiratory distress, no cp, no dyspnea. Feels pain in her throat , admits to headache, and abdominal pain. No dysurea, fever, chills. No vomiting or nausea. In the ED, Gi was consulted, CT neck and chest was done with negative results. PMHX: deafness, neuropathy, hld, gallstone s/p surgery PSHx: cholecystectomy, ERCP, FMHx: non contributory Social: deneis tobacco, alcohol or illicit drug use. Lives with spouse and kids. Allergy: NKDA hOME meds: pravastatin and flexeril Present on Admission - Present on Admission Any Indicators Present on Admission: No History of DVT/PE: No History of Uncontrolled Diabetes: No Urinary Catheter: No Decubitus Ulcer Present: No Review of Systems - Review of Systems All systems: reviewed and no additional remarkable complaints except Review of Systems: As per HPI. Past Patient History - Infectious Disease Hx of Infectious Diseases: None - Tetanus Immunizations Tetanus Immunization: Unknown - Past Medical History & Family History Past Medical History?: Yes Past Family History: Reviewed and not pertinent - Past Social History Smoking Status: Never Smoked Alcohol: None Drugs: Denies Home Situation {Lives}: With Family - CARDIAC Hx Cardiac Disorders: Yes - PULMONARY Hx Respiratory Disorders: No - NEUROLOGICAL Hx Neurological Disorder: No - HEENT Hx HEENT Problems: Yes Hx Deafness: Yes Other/Comment: francis her son interpeter for sign okay with marsha. phone offered - RENAL Hx Chronic Kidney Disease: No - ENDOCRINE/METABOLIC Hx Endocrine Disorders: No - HEMATOLOGICAL/ONCOLOGICAL Hx Blood Transfusions: No Hx Blood Transfusion Reaction: No - INTEGUMENTARY Hx Dermatological Problems: No - MUSCULOSKELETAL/RHEUMATOLOGICAL Hx Musculoskeletal Disorders: No - GASTROINTESTINAL Hx Gastrointestinal Disorders: No - GENITOURINARY/GYNECOLOGICAL Other/Comment: h/o kidney stones - PSYCHIATRIC Hx Psychophysiologic Disorder: No Hx Depression: No Hx Emotional Abuse: No Hx Physical Abuse: No Hx Substance Use: No - SURGICAL HISTORY Hx Hysterectomy: Yes - ANESTHESIA Hx Anesthesia: Yes Hx Anesthesia Reactions: No Hx Malignant Hyperthermia: No Meds Allergies/Adverse Reactions: Allergies Allergy/AdvReac Type Severity Reaction Status Date / Time No Known Allergies Allergy Verified 02/03/17 13:16 Physical Exam - Constitutional Appears: No Acute Distress - Head Exam Head Exam: ATRAUMATIC, NORMAL INSPECTION, NORMOCEPHALIC - Eye Exam Eye Exam: EOMI, Normal appearance, PERRL. absent: Scleral icterus Pupil Exam: NORMAL ACCOMODATION - ENT Exam ENT Exam: Mucous Membranes Moist Additional comments: + oropharageal erythema and edema. - Neck Exam Neck exam: Negative for: Lymphadenopathy, Tenderness, Thyromegaly - Respiratory Exam Respiratory Exam: Clear to Auscultation Bilateral, NORMAL BREATHING PATTERN. absent: Rales, Rhonchi, Wheezes, Respiratory Distress, Stridor - Cardiovascular Exam Cardiovascular Exam: REGULAR RHYTHM, RRR, +S1, +S2. absent: Gallop, Rubs, Systolic Murmur - GI/Abdominal Exam GI & Abdominal Exam: Normal Bowel Sounds, Soft, Tenderness (left lower quadrant) . absent: Distended, Firm, Guarding, Mass, Rebound, Rigid - Extremities Exam Extremities exam: Positive for: normal inspection. Negative for: pedal edema - Back Exam Back exam: NORMAL INSPECTION - Neurological Exam Neurological exam: Alert Additional comments: deafness - Psychiatric Exam Psychiatric exam: Normal Affect, Normal Mood - Skin Skin Exam: Dry, Intact, Warm Results - Vital Signs Recent Vital Signs: Last Vital Signs Temp 99.0 F 12/20/17 23:19 Pulse 93 H 12/20/17 23:14 Resp 20 12/20/17 23:14 BP 143/79 12/20/17 23:14 Pulse Ox 100 12/20/17 23:14 - Labs Result Diagrams: 12/20/17 23:12 12/20/17 23:12 - EKG Data EKG Interpreted by: Myself EKG shows normal: Sinus rhythm Rate: Normal Assessment & Plan - Assessment and Plan (Free Text) Assessment: Patient is a 47 y/o with pmhx of hld, neuropathy, deafness, gallstone s/p ju presenting with acute dysphagia and odynophagia after feeling like a piece of chicken might have stocked into her throat. Plan: 1) Dysphasia and odynophagia due to possible foreign body/food in the throat - Chest x-ray, CT check and neck in the ED with no foreign body noted. - Gi was consulted recommended admission for barium swallow in the morning - NPO, except ice ships - Morphine prn for pain - Monitor on tele, monitor vitals and airway status q1. - S/p glucagon with improvement in secretion control, Epi sc prn for worsening in throat edema - Pepcid, and zofran prn - NS@100 cc/h for hydration - Tylenol prn for fever. 2) Hyperglycemia- will monitor for now - outpatient work up for diabetes 3) h/o hld- hold pravastatin and continue post procedure. 4) h/o neuropathy- flexeril on hold due to npo 3) DVT prophylaxis: VTE device Patient seen, examined and case discussed with the attending. - Date & Time Date: 12/21/17 Time: 01:45 <Cayden Lara - Last Filed: 12/21/17 06:36> Results - Vital Signs Recent Vital Signs: Last Vital Signs Temp 97.8 F 12/21/17 05:11 Pulse 79 12/21/17 05:11 Resp 16 12/21/17 05:11 BP 122/73 12/21/17 05:11 Pulse Ox 98 12/21/17 02:19 - Labs Result Diagrams: 12/20/17 23:12 12/20/17 23:12 Attending/Attestation - Attestation I have personally seen and examined this patient.: Yes I have fully participated in the care of the patient.: Yes I have reviewed all pertinent clinical information: Yes
[2017-12-21] MEDS: Sodium Chloride 0.9% 1,000 ML IV SCH ×3 (00:59→20:42)
[2017-12-21] MEDS ORDERED: EPINEPHrine 1 mg/ml (1:1000) Inj SC PRN (01:09)
--- NOTE | 2017-12-21 08:42 | RAD ---
Date of service: 12/20/2017 HISTORY: medical clearance COMPARISON: No prior. FINDINGS: LUNGS: No active pulmonary disease. PLEURA: No significant pleural effusion identified, no pneumothorax apparent. CARDIOVASCULAR: Normal. OSSEOUS STRUCTURES: No significant abnormalities. VISUALIZED UPPER ABDOMEN: Normal. OTHER FINDINGS: None. IMPRESSION: No interval acute cardiopulmonary disease appreciated.
--- NOTE | 2017-12-21 08:44 | CP.PCM.PN ---
<Yuki Fisher - Last Filed: 12/21/17 08:41> Subjective - Date & Time of Evaluation Date of Evaluation: 12/21/17 Time of Evaluation: 07:00 - Subjective Subjective: GI Fellow PGY5 Progress Note Pt seen and evaluated at bedside, pt is able to swallow liquid this am but reports some discomfort. CT imaging reviewed which is negative for food bolus and pt able to clear secretions and take sips of water with no regurgitation. ROS: A 12pt ROS was negative except as above Objective - Vital Signs/Intake and Output Vital Signs (last 24 hours): Temp Pulse Resp BP Pulse Ox 98.1 F 78 16 110/82 96 12/21/17 06:00 12/21/17 06:00 12/21/17 06:00 12/21/17 06:00 12/21/17 06:00 Intake and Output: 12/21/17 12/21/17 06:59 18:59 Intake Total 500 Balance 500 - Medications Medications: Current Medications Acetaminophen (Tylenol 120mg Supp) 120 mg RC Q6 PRN PRN Reason: Fever >100.4 F Epinephrine HCl (Epinephrine) 1 mg SC Q15MIN PRN PRN Reason: Swelling Sodium Chloride (Sodium Chloride 0.9%) 1,000 mls @ 100 mls/hr IV .Q10H [facility] Last Admin: 12/21/17 00:59 Dose: 100 mls/hr Ondansetron HCl (Zofran Inj) 4 mg IVP Q4H PRN PRN Reason: Nausea/Vomiting Pantoprazole Sodium (Protonix Ec Tab) 40 mg PO 0600 [facility] Sucralfate (Carafate Oral Susp) 1 gm PO 0630,1130,1630,2200 [facility] - Constitutional Appears: Non-toxic, No Acute Distress - Head Exam Head Exam: ATRAUMATIC, NORMAL INSPECTION, NORMOCEPHALIC - Eye Exam Eye Exam: EOMI, Normal appearance, PERRL Pupil Exam: PERRL - ENT Exam ENT Exam: Mucous Membranes Moist, Normal Exam - Neck Exam Neck Exam: Full ROM, Normal Inspection - Respiratory Exam Respiratory Exam: Clear to Ausculation Bilateral, NORMAL BREATHING PATTERN - Cardiovascular Exam Cardiovascular Exam: REGULAR RHYTHM, RRR, +S1, +S2 - GI/Abdominal Exam GI & Abdominal Exam: Soft, Normal Bowel Sounds. absent: Distended, Firm, Guarding, Tenderness, Organomegaly - Rectal Exam Rectal Exam: Deferred - Extremities Exam Extremities Exam: Full ROM, Normal Inspection - Neurological Exam Neurological Exam: Alert, Awake, Oriented x3 - Psychiatric Exam Psychiatric exam: Normal Affect, Normal Mood - Skin Skin Exam: Dry, Intact, Normal Color, Warm Assessment and Plan - Assessment and Plan (Free Text) Assessment: This is a 47yF presenting with trouble swallowing and feeling like food is stuck in her throat. 1. Dysphagia r/o food impaction 2. Odynophagia 3. Deafness Plan: -Continue supportive care -No food bolus impaction seen on CT imaging and may have passed after glucagon in ER -Patient currently able to swallow water with some discomfort -NPO -Will order barium esophagram to r/o any obstruction or microperforation -If Esophagram neg then okay to advance to clear liquid diet and discharge pt home -Recommend slowly advancing diet at home from clears, full, soft and then regular food over a course of one week -PPI 40mg po daily for 2 weeks and carafate suspension qid for 2 weeks -Pt should followup outpt with GI for possible EGD and r/o EOE Pt seen and discussed with Dr. Velasquez who agrees with above mentioned plan. <Kd Velasquez - Last Filed: 12/21/17 09:19> Objective - Vital Signs/Intake and Output Vital Signs (last 24 hours): Temp Pulse Resp BP Pulse Ox 98.1 F 78 16 110/82 96 12/21/17 06:00 12/21/17 06:00 12/21/17 06:00 12/21/17 06:00 12/21/17 06:00 Intake and Output: 12/21/17 12/21/17 06:59 18:59 Intake Total 500 Balance 500 - Medications Medications: Current Medications Acetaminophen (Tylenol 120mg Supp) 120 mg RC Q6 PRN PRN Reason: Fever >100.4 F Epinephrine HCl (Epinephrine) 1 mg SC Q15MIN PRN PRN Reason: Swelling Sodium Chloride (Sodium Chloride 0.9%) 1,000 mls @ 100 mls/hr IV .Q10H [facility] Last Admin: 12/21/17 00:59 Dose: 100 mls/hr Ondansetron HCl (Zofran Inj) 4 mg IVP Q4H PRN PRN Reason: Nausea/Vomiting Pantoprazole Sodium (Protonix Ec Tab) 40 mg PO 0600 [facility] Sucralfate (Carafate Oral Susp) 1 gm PO 0630,1130,1630,2200 [facility] Attending/Attestation - Attestation I have personally seen and examined this patient.: Yes I have fully participated in the care of the patient.: Yes I have reviewed all pertinent clinical information, including history, physical exam and plan: Yes Notes (Text): 12/21/17 09:18 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 Patient swallowing secretions and liquids but has pain. Barium esophagogram pending. PPi liquid po and NPO. Rest of plan to follow after above imaging Discussed with GI fellow on rounds and images reviewed be me
--- NOTE | 2017-12-21 09:14 | CARD ---
APPROVED REPORT Date of service: 12/21/2017 EKG Measurement Heart [id number] <Conclusion> Normal sinus rhythm Minimal voltage criteria for LVH, may be normal variant NSSTW changes
[2017-12-21] MEDS: Pantoprazole 40 mg EC Tab PO SCH (09:22)
--- NOTE | 2017-12-21 09:28 | CARD ---
APPROVED REPORT Date of service: 12/20/2017 EKG Measurement Heart [id number] [id number] <Conclusion> Normal sinus rhythm Minimal voltage criteria for LVH No change
[2017-12-21 09:34] LABS: BASO # 0.01 K/mm3 (0.0-2.0); BASO % 0.1 % (0.0-3.0); EOS % 0.3 % (1.5-5.0); GRAN # 5.39 (1.4-6.5); GRAN % 76.9 % (50.0-68.0); HEMOGLOBIN 13.1 g/dL (12.0-16.0); LYMPH % 14.7 % (22.0-35.0); MEAN CELL VOLUME 93.3 fl (80.0-105.0); MEAN CORPUSCULAR HEMOGLOBIN 31.4 pg (25.0-35.0); MEAN CORPUSCULAR HGB CONC 33.7 g/dl (31.0-37.0); MONO # 0.6 (0.1-0.6); RBC 4.17 10^6/uL (3.5-6.1); RED CELL DISTRIBUTION WIDTH 12.5 % (11.5-14.5)
[2017-12-21] MEDS ORDERED: Iohexol 350 MG/100 ML VIAL ONE (09:37)
[2017-12-21] MEDS ORDERED: Barium Sulfate for Susp 98% w/w 340g Bottle ONE (09:38)
[2017-12-21] MEDS ORDERED: Barium Sulfate for Susp 96% w/w 176g Bottle PR ONE (09:38)
[2017-12-21 10:01] LABS: ALB/GLOB RATIO 1.2 (1.1-1.8); ALBUMIN 3.4 g/dL (3.0-4.8); ALT/SGPT 29 U/L (7-56); AST/SGOT 22 U/L (14-36); BLOOD UREA NITROGEN 8 mg/dL (7-21); CALCIUM 8.9 mg/dL (8.4-10.5); GFR NON-AFRICAN AMERICAN > 60
--- NOTE | 2017-12-21 11:13 | CT ---
Date of service: 12/20/2017 PROCEDURE: CT NECK WITHOUT CONTRAST HISTORY: r/o FB COMPARISON: None available. TECHNIQUE: CT of the neck without intravenous contrast. Coronal and sagittal reformats generated. Radiation dose: DLP 359 mGy-cm This CT exam was performed using one or more of the following dose reduction techniques: Automated exposure control, adjustment of the mA and/or kV according to patient size, and/or use of iterative reconstruction technique. FINDINGS: NASOPHARYNX: Unremarkable. SUPRAHYOID NECK: Unremarkable oropharynx, oral cavity, parapharyngeal space and retropharyngeal space. INFRAHYOID NECK: Unremarkable larynx, hypopharynx, and supraglottic space. Vocal cords intact. MASS: None. GLANDS: Parotid and submandibular glands unremarkable. Normal size thyroid gland, without nodule. LYMPH NODES: Normal. No lymphadenopathy. CERVICAL SPINE: No fracture or focal lesion. OTHER FINDINGS: The report concurs with the preliminary [facility] report IMPRESSION: Unremarkable non-contrast enhanced CT of the neck. No evidence foreign body
--- NOTE | 2017-12-21 11:19 | CT ---
Date of service: 12/20/2017 PROCEDURE: CT Chest without contrast HISTORY: r/o foreign body COMPARISON: CT abdomen 01/31/2012 TECHNIQUE: Contiguous axial images were obtained through the chest without intravenous contrast enhancement. Sagittal and coronal reconstructions were performed. Radiation dose (DLP): 217 mGy-cm. This CT exam was performed using one or more of the following dose reduction techniques: Automated exposure control, adjustment of the mA and/or kV according to patient size, and/or use of iterative reconstruction technique. FINDINGS: LUNGS: Clear lungs. Visualized airway clear. There is a 4 mm nodule in the right lower lobe. This is unchanged MEDIASTINUM: Unremarkable thoracic aorta. No aneurysm. Normal sized heart. Main pulmonary artery unremarkable. No vascular congestion. No lymphadenopathy. PLEURA: No pleural fluid. No pneumothorax. BONES: No fracture. No destructive lesion. UPPER ABDOMEN: Grossly unremarkable. OTHER FINDINGS: The report concurs with the preliminary [facility] report IMPRESSION: Negative study. No evidence of foreign body
[2017-12-21 11:38] VITALS: RESP 18
[2017-12-21] MEDS: Sucralfate 1 gm/10 ml Oral Susp UD PO SCH ×3 (12:32→21:57)
--- NOTE | 2017-12-21 15:43 | RAD ---
Date of service: 12/21/2017 HISTORY: Dysphagia. COMPARISON: None. TECHNIQUE: Gastrografin and sequencing barium esophagram was performed. Total fluoroscopy time: 1.8 minutes. Total cumulative radiation dose 104.95 mGy. FINDINGS: Patient tolerated procedure well. ESOPHAGUS: Esophageal mucosal margins appear intact and there is no extravasation of Gastrografin oral contrast initially nor in the follow-up barium esophagram in multiple planes. No evidence of stricture or mass lesion. No suspicious filling defect or contrast collection. HIATAL HERNIA: None demonstrated. GASTROESOPHAGEAL REFLUX: Not demonstrated. OTHER FINDINGS: None. IMPRESSION: Unremarkable esophagram. No constricting or obstructing mass or other suspicious filling defect. No extravasation of oral contrast material into the mediastinum.
[2017-12-21 18:36] VITALS: O2SAT 98
[2017-12-22] MEDS: Pantoprazole 40 mg EC Tab PO SCH (05:45)
[2017-12-22] MEDS: Sucralfate 1 gm/10 ml Oral Susp UD PO SCH ×2 (05:45→11:08)
[2017-12-22] MEDS: Sodium Chloride 0.9% 1,000 ML IV SCH (05:46)
[2017-12-22 06:39] LABS: BASO # 0.01 K/mm3 (0.0-2.0); BASO % 0.2 % (0.0-3.0); EOS # 0.1 (0.0-0.7); EOS % 1.2 % (1.5-5.0); GRAN # 3.21 (1.4-6.5); GRAN % 65.5 % (50.0-68.0); HEMOGLOBIN 12.4 g/dL (12.0-16.0); LYMPH # 1.2 (1.2-3.4); LYMPH % 25.3 % (22.0-35.0); MEAN CELL VOLUME 94.1 fl (80.0-105.0); MEAN CORPUSCULAR HEMOGLOBIN 30.7 pg (25.0-35.0); MEAN CORPUSCULAR HGB CONC 32.6 g/dl (31.0-37.0); MEAN PLATELET VOLUME 11.3 fl (7.0-11.0); MONO # 0.4 (0.1-0.6); MONO % 7.8 % (1.0-6.0); RBC 4.04 10^6/uL (3.5-6.1); RED CELL DISTRIBUTION WIDTH 12.5 % (11.5-14.5); WHITE BLOOD COUNT 4.9 10^3/ul (4.5-11.0)
[2017-12-22 06:50] LABS: ALB/GLOB RATIO 1.2 (1.1-1.8); ALT/SGPT 31 U/L (7-56); AST/SGOT 21 U/L (14-36); BLOOD UREA NITROGEN 5 mg/dL (7-21); CALCIUM 8.6 mg/dL (8.4-10.5); GFR NON-AFRICAN AMERICAN > 60
--- NOTE | 2017-12-22 09:34 | CP.PCM.PN ---
<Yuki Fisher - Last Filed: 12/22/17 09:34> Subjective - Date & Time of Evaluation Date of Evaluation: 12/15/17 Time of Evaluation: 08:00 - Subjective Subjective: GI Fellow PGY5 Progress Note Pt seen and evaluated at bedside, pt is able to swallow liquid this am with no discomfort. Esophagram is negative. ROS: A 12pt ROS was negative except as above Objective - Vital Signs/Intake and Output Vital Signs (last 24 hours): Temp Pulse Resp BP Pulse Ox 97.9 F 71 18 113/71 98 12/22/17 06:00 12/22/17 06:00 12/22/17 06:00 12/22/17 06:00 12/22/17 06:00 Intake and Output: 12/22/17 12/22/17 06:59 18:59 Intake Total 2840 Output Total 600 Balance 2240 - Medications Medications: Current Medications Acetaminophen (Tylenol 120mg Supp) 120 mg RC Q6 PRN PRN Reason: Fever >100.4 F Epinephrine HCl (Epinephrine) 1 mg SC Q15MIN PRN PRN Reason: Swelling Sodium Chloride (Sodium Chloride 0.9%) 1,000 mls @ 100 mls/hr IV .Q10H [facility] Last Admin: 12/22/17 05:46 Dose: 100 mls/hr Ondansetron HCl (Zofran Inj) 4 mg IVP Q4H PRN PRN Reason: Nausea/Vomiting Pantoprazole Sodium (Protonix Ec Tab) 40 mg PO 0600 [facility] Last Admin: 12/22/17 05:45 Dose: 40 mg Sucralfate (Carafate Oral Susp) 1 gm PO 0630,1130,1630,2200 [facility] Last Admin: 12/22/17 05:45 Dose: 1 gm - Labs Labs: 12/22/17 05:45 12/22/17 05:45 - Constitutional Appears: Non-toxic, No Acute Distress - Head Exam Head Exam: ATRAUMATIC, NORMAL INSPECTION, NORMOCEPHALIC - Eye Exam Eye Exam: EOMI, Normal appearance, PERRL Pupil Exam: PERRL - ENT Exam ENT Exam: Mucous Membranes Moist, Normal Exam - Neck Exam Neck Exam: Full ROM, Normal Inspection - Respiratory Exam Respiratory Exam: Clear to Ausculation Bilateral, NORMAL BREATHING PATTERN - Cardiovascular Exam Cardiovascular Exam: REGULAR RHYTHM, RRR, +S1, +S2 - GI/Abdominal Exam GI & Abdominal Exam: Soft, Normal Bowel Sounds. absent: Distended, Tenderness - Extremities Exam Extremities Exam: Full ROM, Normal Inspection - Back Exam Back Exam: NORMAL INSPECTION - Neurological Exam Neurological Exam: Alert, Awake, Oriented x3 - Psychiatric Exam Psychiatric exam: Normal Affect, Normal Mood - Skin Skin Exam: Dry, Intact, Normal Color, Warm Assessment and Plan - Assessment and Plan (Free Text) Assessment: This is a 47yF presenting with trouble swallowing and feeling like food is stuck in her throat. 1. Dysphagia s/p food bolus resolved 2. Odynophagia 3. Deafness Plan: -Continue supportive care -No food bolus impaction seen on CT imaging and may have passed after glucagon in ER -Barium esophagram with no obstruction or microperforation -Pt tolerating clear liquid diet -Recommend slowly advancing diet at home from clears, full, soft and then regular food over a course of one week -PPI 40mg po daily for 2 weeks and carafate suspension qid for 2 weeks -Pt should followup outpt with GI for possible EGD and r/o EOE -Pt okay for discharge home per GI perspective <Kd Velasquez - Last Filed: 12/22/17 11:51> Objective - Vital Signs/Intake and Output Vital Signs (last 24 hours): Temp Pulse Resp BP Pulse Ox 97.9 F 94 H 18 113/71 98 12/22/17 06:00 12/22/17 10:00 12/22/17 06:00 12/22/17 06:00 12/22/17 06:00 Intake and Output: 12/22/17 12/22/17 06:59 18:59 Intake Total 2840 Output Total 600 Balance 2240 - Medications Medications: Current Medications Acetaminophen (Tylenol 120mg Supp) 120 mg RC Q6 PRN PRN Reason: Fever >100.4 F Epinephrine HCl (Epinephrine) 1 mg SC Q15MIN PRN PRN Reason: Swelling Sodium Chloride (Sodium Chloride 0.9%) 1,000 mls @ 100 mls/hr IV .Q10H [facility] Last Admin: 12/22/17 05:46 Dose: 100 mls/hr Ondansetron HCl (Zofran Inj) 4 mg IVP Q4H PRN PRN Reason: Nausea/Vomiting Last Admin: 12/22/17 11:08 Dose: 4 mg Pantoprazole Sodium (Protonix Ec Tab) 40 mg PO 0600 [facility] Last Admin: 12/22/17 05:45 Dose: 40 mg Sucralfate (Carafate Oral Susp) 1 gm PO 0630,1130,1630,2200 [facility] Last Admin: 12/22/17 11:08 Dose: 1 gm - Labs Labs: 12/22/17 05:45 12/22/17 05:45 Attending/Attestation - Attestation I have personally seen and examined this patient.: Yes I have fully participated in the care of the patient.: Yes I have reviewed all pertinent clinical information, including history, physical exam and plan: Yes Notes (Text): 12/22/17 11:49 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 Patient swallowing secretions and liquids but has pain. Barium esophagogram unremrkable. Continue PPi daily for 12 weeks. Discussed with GI fellow on rounds and images reviewed be me. Will sign off now. EGD as outpatient 12/22/17 11:50
[2017-12-22 12:17] VITALS: BP 133/75; PULSE 63; TEMP 97.7
--- NOTE | 2017-12-22 16:27 | CP.PCM.DIS ---
Provider - Provider Date of Admission: 12/21/17 00:42 Attending physician: Binta Chawla MD Primary care physician: NO PRIMARY CARE PROVIDER Consults: JUAN Velasquez Time Spent in preparation of Discharge (in minutes): 45 Hospital Course - Lab Results Lab Results: Most Recent Lab Values WBC 4.9 10^3/ul (4.5-11.0) D 12/22/17 05:45 RBC 4.04 10^6/uL (3.5-6.1) 12/22/17 05:45 Hgb 12.4 g/dL (12.0-16.0) 12/22/17 05:45 Hct 38.0 % (36.0-48.0) 12/22/17 05:45 MCV 94.1 fl (80.0-105.0) 12/22/17 05:45 MCH 30.7 pg (25.0-35.0) 12/22/17 05:45 MCHC 32.6 g/dl (31.0-37.0) 12/22/17 05:45 RDW 12.5 % (11.5-14.5) 12/22/17 05:45 Plt Count 201 10^3/uL (120.0-450.0) 12/22/17 05:45 MPV 11.3 fl (7.0-11.0) H 12/22/17 05:45 Gran % 65.5 % (50.0-68.0) 12/22/17 05:45 Lymph % (Auto) 25.3 % (22.0-35.0) 12/22/17 05:45 Robertson % (Auto) 7.8 % (1.0-6.0) H 12/22/17 05:45 Eos % (Auto) 1.2 % (1.5-5.0) L 12/22/17 05:45 Baso % (Auto) 0.2 % (0.0-3.0) 12/22/17 05:45 Gran # 3.21 (1.4-6.5) 12/22/17 05:45 Lymph # (Auto) 1.2 (1.2-3.4) 12/22/17 05:45 Robertson # (Auto) 0.4 (0.1-0.6) 12/22/17 05:45 Eos # (Auto) 0.1 (0.0-0.7) 12/22/17 05:45 Baso # (Auto) 0.01 K/mm3 (0.0-2.0) 12/22/17 05:45 Sodium 143 mmol/L (132-148) 12/22/17 05:45 Potassium 4.0 mmol/L (3.6-5.0) 12/22/17 05:45 Chloride 113 mmol/L (98-107) H 12/22/17 05:45 Carbon Dioxide 23 mmol/L (21-33) 12/22/17 05:45 Anion Gap 11 (10-20) 12/22/17 05:45 BUN 5 mg/dL (7-21) L 12/22/17 05:45 Creatinine 0.5 mg/dl (0.7-1.2) L 12/22/17 05:45 Est GFR ( Amer) > 60 12/22/17 05:45 Est GFR (Non-Af Amer) > 60 12/22/17 05:45 Random Glucose 84 mg/dL (70-110) 12/22/17 05:45 Calcium 8.6 mg/dL (8.4-10.5) 12/22/17 05:45 Total Bilirubin 1.0 mg/dL (0.2-1.3) 12/22/17 05:45 AST 21 U/L (14-36) 12/22/17 05:45 ALT 31 U/L (7-56) 12/22/17 05:45 Alkaline Phosphatase 63 U/L (38-126) 12/22/17 05:45 Total Protein 5.6 g/dL (5.8-8.3) L 12/22/17 05:45 Albumin 3.0 g/dL (3.0-4.8) 12/22/17 05:45 Globulin 2.6 gm/dL 12/22/17 05:45 Albumin/Globulin Ratio 1.2 (1.1-1.8) 12/22/17 05:45 - Hospital Course Hospital Course: Chao Whitman DO PGY-1, Desk Officer Medicine Discharge Summary Patient is a 47 y/o with Pmhx of HLD, neuropathy, deafness, gallstones, presenting with acute dysphagia and odynophagia on 12/20/17. Patient's son helped translate via sign language. Patient was eating pasta and chicken last night, felt like the chicken stuck in her throat and had not been able to clear her throat or swallow the food. Tried to induce vomiting with no success. Admitted to drooling initially, however patient was able to drink water after receiving glucagon in the ED.No drooling at this time, however still felt like there's something in her throat. Denies respiratory distress, no cp, no dyspnea. [place] pain in her throat, admitted to headache, and abdominal pain.No dysurea, fever, chills. No vomiting or nausea. In the ED, GI was consulted (Dr. Velasquez), CT neck and chest was done with negative results. GI recommended Barium esophagram, which demonstrated no signs of obstruction. Patient was able to tolerate liquids and soft diet without concerns. Patient was discharged to home in stable condition on 12/22/17 and instructed to follow-up with her primary care physician ([facility]) within 1 week of discharge, and GI (Dr. Velasquez) within 1-2 weeks of discharge for scheduling possible EGD/ colonoscopy. Patient was instructed to slowly advance diet as tolerated to solid foods at home, and was discharged on Protonix and Carafate for symptoms. Discharge Exam - Head Exam Head Exam: ATRAUMATIC, NORMAL INSPECTION, NORMOCEPHALIC - Eye Exam Eye Exam: EOMI, Normal appearance, PERRL - ENT Exam ENT Exam: Mucous Membranes Moist, Normal Oropharynx - Respiratory Exam Respiratory Exam: Clear to PA & Lateral, NORMAL BREATHING PATTERN, UNREMARKABLE - Cardiovascular Exam Cardiovascular Exam: REGULAR RHYTHM, +S1, +S2 - GI/Abdominal Exam GI & Abdominal Exam: Normal Bowel Sounds, Soft, Unremarkable. absent: Tenderness - Extremities Exam Extremities exam: full ROM, normal capillary refill, normal inspection, pedal pulses present - Neurological Exam Neurological exam: Alert, Normal Gait, Oriented x3 - Psychiatric Exam Psychiatric exam: Normal Affect, Normal Mood - Skin Skin Exam: Dry, Intact, Normal Color, Warm Discharge Plan - Discharge Medications Prescriptions: Pantoprazole [Protonix EC Tab] 40 mg PO 0600 #30 ect Sucralfate [Carafate Oral Susp] 10 ml PO QID #1500 ml - Follow Up Plan Condition: STABLE Disposition: HOME/ ROUTINE Instructions: Foreign Body, Swallowed, Adult (DC) Additional Instructions: Please follow-up with your primary care physician (at [facility] ) within 1 week of discharge. Please follow up with GI (Dr. Velasquez) within 1 week of discharge to plan for endoscopy/colonoscopy. Please advance diet as tolerated, until you return to a normal diet. Please take medications as prescribed including Protonix and Carafate. Should symptoms recur or worsen, please go to your primary care physician or report to your nearest emergency department. Referrals: PCP,NO [Primary Care Provider] -
== END 2017-12-22 14:13 | disposition home or self-care (01) ==
LOC: ED 21:34 → ERH 12-21 00:42 → 2RNO 12-21 02:43
PROVIDERS: ADMIT Internal Medicine; ATTEND Internal Medicine
DX: R13.10 Dysphagia, unspecified (principal); T18.108A Unspecified foreign body in esophagus causing other injury, initial encounter; R73.9 Hyperglycemia, unspecified; E78.5 Hyperlipidemia, unspecified; H91.3 Deaf nonspeaking, not elsewhere classified; G62.9 Polyneuropathy, unspecified; Z87.442 Personal history of urinary calculi
CPT/HCPCS: 36415; 70490; 71045; 71250; 74220; 80053; 85025; 85027; 93005; 99285; C9113; G0378; J1610; J2405; J7030; Q9967